=== PATIENT | female | born 2005 | race Caucasian/White ===

== ENCOUNTER 2024-04-14 10:09 | Outpatient (AMB) | payer BC, SELFPAY ==
--- NOTE | 2024-04-14 10:27 | AMB.GYNCLNOT ---
Vital Signs 04/14/24 10:28 Height 1.6 m Height Method Stated Weight 77.111 kg Weight Measurement Method Standing Scale BMI 30.1 BP 144/86 H Blood Pressure Source Automatic Cuff Blood Pressure Location Left Upper Arm Position Sitting Respiration 16 Pulse 95 Pulse Source Monitor Temp 97.6 F Temp Source Oral Pulse Oximetry (%) 98 Oxygen Delivery Method Room Air Allergies/Home Meds Allergies & Medications Allergies No Known Allergies Allergy (Verified 04/14/24 10:30) Medication Reconciliation escitalopram oxalate 5 mg tablet (Lexapro) 5 mg PO QDAY 04/14/24 [History Confirmed 04/14/24] Intake Visit Data Collection New Patient or Established: New Patient not seen in past 3 years at [facility] (considered New) Reason for Visit:: Contraception counseling Seen by Clinical Staff ONLY (RN/MA): No Integration Architect Required: No Do You Feel Safe at Home: Yes Authorities Contacted: N/A PCP or OBGYN visit in last 3 months: No Hx Now: No Are you currently on any form of Control: Yes Last menstrual period: 03/11/24 Pain Present Currently: No Pain Scale Used: Barth-Hendricks/Numerical Pain scale:: 0 Smoking Status Smoking Status: Never smoker Obstetrics/Gynecology Nurse 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 1. Little interest or pleasure in doing things: not at all 2. Feeling down, depressed, or hopeless: not at all Total score: 0 PHQ-9 3. Trouble falling or staying asleep, or sleeping too much: Not at all 4. Feeling tired or having little energy: Not at all 5. Poor appetite or overeating: Not at all 6. Feeling bad about yourself - or that you are a failure or have let yourself or your family down: Not at all 7. Trouble concentrating on things, such as reading the newspaper or watching television: Not at all 8. Moving or speaking so slowly that other people could have noticed? - Or the opposite - being so fidgety or restless that you have been moving around a lot more than usual: not at all 9. Thoughts that you would be better off or of hurting yourself in some way: Not at all Total score: 0 Source: Developed by Drs. Randy Browning, Maritza Can, Td Rivers and colleagues, with an educational ernie from [employer]. Depression screen completed yes Social History Living Situation History Marital Status: Single Lives With: Family Housing: House Housing Other:: The patient is in college. 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 Tobacco History Smoking Status: Never smoker Alcohol History Alcohol Intake: Current Alcohol Intake Frequency: holidays/special occasions only Substance Use History Substance Use: no Domestic Abuse History Do You Feel Safe at Home: Yes Past Medical History Past Medical History Have you ever been diagnosed with any of the following: Neurological Problems Cerebrovascular Accident (CVA): No Transient Ischemic Attacks (TIA): No Meningitis: No Seizures: No Guillain-[place] Syndrome: No Cardiology Problems Heart Murmur: No Congestive Heart Failure: No Hypertension: No Hypotension: No Respiratory Problems Chronic Obstructive Pulmonary Disease (COPD): No Asthma: No Bronchitis: No Pneumonia: No Tuberculosis: No Stomache/Intestinal Problems Hepatitis: No Gall Bladder Disease: No Reproductive Problems Breast Cancer: No Endometriosis: No Fibroids: No Genital Herpes: No Gonorrhea: No Pelvic Inflammatory Disease: No Polycystic Ovarian Syndrome: No Previous Pregnancies: No Syphilis: No Testicular Cancer: No Uterine Prolapse: No Musculoskeletal Problems Muscular Dystrophy: No Myasthenia Gravis: No Marfan's Syndrome: No Bone Cancer: No Arthritis: No Rheumatoid Arthritis: No Osteoporosis: No Endocrine Problems Diabetes Mellitus Type 1: No Diabetes Mellitus Type 2: No Hypoglycemia: No Aimee's Syndrome: No [place]'s Disease: No Hyperthyroidism: No Hypothyroidism: No Thyroid Cancer: No Parathyroid Disease: No Pituitary Disease: No Systemic Lupus Erythematosus: No Syndrome of Inappropriate Antidiuretic Hormone: No Adrenal Disease: No Graves' Disease: No Blood Problems Anemia: No Leukemia: No Hemophilia: No Psychologic Problems Depression: Yes Anxiety: Yes Attention Deficit Hyperactivity Disorder: Yes Other Problems Hospitalization: No Autoimmune Disease: No Down Syndrome: No Autism: No Developmental Delay: No Cosmetic Surgery: No Blood Transfusions: No History of Present Illness HPI Narrative The patient is a very pleasant 19-year-old G0 who presents to discuss control. She is currently on a low-dose control pill and is interested in the Mirena IUD. Patient states she is sexually active with 1 total lifetime partner. She is in a committed relationship and actually has a promise ring. Patient is pretty sure she had a Gardasil vaccine earlier she is going to check with her mother. Patient has not been tested for GC chlamydia in the urine and is willing to get tested today. She would like a Mirena IUD. She is tired of taking a control pill every day. Patient is on Lexapro 5 mg a day and Vyvanse for ADHD. She is on no other medications. Review of Systems Review of Systems Systems Reviewed: All systems reviewed, normal except as documented Constitutional Constitutional: Reports system reviewed and no additional complaints, except as documented Comments: Patient has regular withdrawal bleeding on her control pills she has no pelvic pain she has no pain with intercourse she has no abnormal bleeding between her withdraw pills. She has had no abnormal discharge or vaginal odor. She has about 3 to 4-day cycles on her control pill. She needs a refill today on control while we authorize for an IUD. Exam General Limitations: no limitations General Appearance: alert, in no apparent distress, comfortable, cooperative, healthy appearing, well developed and well groomed Neck Neck exam: Present normal inspection, full ROM and trachea midline Resp Respiratory exam: Present normal lung sounds bilaterally Card Cardiovascular exam: Present regular rate, normal rhythm and normal heart sounds Extremities Extremities exam: Present normal inspection and full ROM Psych Psychiatric exam: Present normal affect and normal mood Skin Skin exam: Present warm, dry, intact and normal color Assessment & Plan Diagnosis / Problem List (1) Contraceptive education: Status: Acute Plan: Plan to refill control pills at this time. We will authorize for Mirena IUD. We will call the patient once her IUD is authorized for insertion. Patient was told after we insert the IUD she needs to return refrain from intercourse for 2 weeks. We will bring her back at that point for string check. Patient does live in [place] so we will at this point check a GC chlamydia authorized for Mirena IUD and call her once it is authorized for placement. Additional Plan Follow Up: 3 Days Office Procedures OB Clinic LOC & Office Proc's Nursing/Assessment Patient Status: Initial/New Patient OB Clinic Nursing Assessment: Medication Reconciliation, Update PMH in EMR and Vital Signs OB Clinic Coordination of Care: Complex Care and Chronic Disease 1-5, Consent,records obtained, informed consent, Education Simp Pt/Fam, Lab and Imaging orders and Staff clarify orders New Patient Charge New Patient Point Assignment: 1099 New Patient Point Charge: HASHER OPERATOR Level 3 ([id number])
[2024-04-14 10:28] VITALS: BP 144/86; PULSE 95; RESP 16; TEMP 36.4; O2SAT 98; BMI 30.1
== END 2024-04-14 11:02 | disposition home or self-care (01) ==
PROVIDERS: Supervising Provider Obstetrics & Gynecology; Visit Provider Obstetrics & Gynecology
DX: Z30.09 Encounter for other general counseling and advice on contraception (principal)
CPT/HCPCS: 99203; G0463

== ENCOUNTER → 2024-04-14 | Outpatient (CLI) | payer BC, SELFPAY ==
[2024-04-14 17:36] LABS: Chlamydia trachomatis PCR Negative (Not Detect); Neisseria Gonorrhoeae DNA PCR Negative (Not Detect); Trichomonas Negative (Negative)
== END | disposition home or self-care (01) ==
PROVIDERS: Referring Provider Obstetrics & Gynecology; Visit Provider Obstetrics & Gynecology
DX: Z11.3 Encounter for screening for infections with a predominantly sexual mode of transmission (principal)
CPT/HCPCS: 87086; 87491; 87591; 87661

== ENCOUNTER 2024-06-23 11:01 | Outpatient (AMB) | payer BC, SELFPAY ==
[2024-06-23 11:21] VITALS: BP 161/80; PULSE 106; RESP 18; TEMP 36.2; O2SAT 99; BMI 32.6
--- NOTE | 2024-06-23 11:21 | GYNCLNT_ITS ---
Vital Signs 06/23/24 11:21 Height 1.6 m Height Method Stated Weight 83.574 kg Weight Measurement Method Standing Scale BMI 32.6 BP 161/80 H Blood Pressure Source Automatic Cuff Blood Pressure Location Left Upper Arm Position Sitting Respiration 18 Pulse 106 H Pulse Source Monitor Temp 97.2 F Temp Source Oral Pulse Oximetry (%) 99 Oxygen Delivery Method Room Air Allergies/Home Meds Allergies & Medications Allergies No Known Allergies Allergy (Verified 06/23/24 11:22) Medication Reconciliation escitalopram oxalate 5 mg tablet (Lexapro) 5 mg PO QDAY 04/14/24 [History Confirmed 06/23/24] norethindrone 1.5 mg-ethinyl estradiol 30 mcg(21)/iron 75 mg(7) tablet (Blisovi Fe 1.5/30 (28)) 1 tab PO QDAY #84 tabs 04/14/24 [Rx Confirmed 06/23/24] Intake Visit Data Collection New Patient or Established: Established Patient (seen at [facility] within 3 years) Reason for Visit:: Patient presents for Mirena IUD insertion Seen by Clinical Staff ONLY (RN/MA): No Grounds Person Required: No Do You Feel Safe at Home: Yes Authorities Contacted: N/A PCP or OBGYN visit in last 3 months: Yes Date of Last PCP or OBGYN visit: 04/14/24 Hx Now: No Are you currently on any form of Control: Yes (Patient is on control pills) Last menstrual period: 05/22/24 Pain Present Currently: No Pain Scale Used: Barth-Hendricks/Numerical Pain scale:: 0 Smoking Status Smoking Status: Never smoker 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 1. Little interest or pleasure in doing things: not at all 2. Feeling down, depressed, or hopeless: not at all Total score: 0 PHQ-9 3. Trouble falling or staying asleep, or sleeping too much: Not at all 4. Feeling tired or having little energy: Not at all 5. Poor appetite or overeating: Not at all 6. Feeling bad about yourself - or that you are a failure or have let yourself or your family down: Not at all 7. Trouble concentrating on things, such as reading the newspaper or watching television: Not at all 8. Moving or speaking so slowly that other people could have noticed? - Or the opposite - being so fidgety or restless that you have been moving around a lot more than usual: not at all 9. Thoughts that you would be better off or of hurting yourself in some way: Not at all Total score: 0 If you checked off any problems, how difficult have these problems made it for you to do your work, take care of things at home, or get along with other people?: not difficult at all Source: Developed by Drs. Randy Browning, Maritza Can, Td Rivers and colleagues, with an educational ernie from [employer]. 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 Tobacco History Smoking Status: Never smoker Second Hand Smoke Exposure: No Alcohol History Alcohol Intake: Current Alcohol Intake Frequency: holidays/special occasions only Substance Use History Substance Use: no Domestic Abuse History Do You Feel Safe at Home: Yes Past Medical History Past Medical History Have you ever been diagnosed with any of the following: Neurological Problems Cerebrovascular Accident (CVA): No Transient Ischemic Attacks (TIA): No Meningitis: No Seizures: No Guillain-[place] Syndrome: No Cardiology Problems Heart Murmur: No Congestive Heart Failure: No Hypertension: No Hypotension: No Respiratory Problems Chronic Obstructive Pulmonary Disease (COPD): No Asthma: No Bronchitis: No Pneumonia: No Tuberculosis: No Stomache/Intestinal Problems Hepatitis: No Gall Bladder Disease: No Reproductive Problems Breast Cancer: No Endometriosis: No Fibroids: No Genital Herpes: No Gonorrhea: No Pelvic Inflammatory Disease: No Polycystic Ovarian Syndrome: No Previous Pregnancies: No Syphilis: No Uterine Prolapse: No Musculoskeletal Problems Muscular Dystrophy: No Myasthenia Gravis: No Marfan's Syndrome: No Bone Cancer: No Arthritis: No Rheumatoid Arthritis: No Osteoporosis: No Endocrine Problems Diabetes Mellitus Type 1: No Diabetes Mellitus Type 2: No Hypoglycemia: No Aimee's Syndrome: No [place]'s Disease: No Hyperthyroidism: No Hypothyroidism: No Thyroid Cancer: No Parathyroid Disease: No Pituitary Disease: No Systemic Lupus Erythematosus: No Syndrome of Inappropriate Antidiuretic Hormone: No Adrenal Disease: No Graves' Disease: No Blood Problems Anemia: No Leukemia: No Hemophilia: No Psychologic Problems Depression: Yes Anxiety: Yes Attention Deficit Hyperactivity Disorder: Yes Other Problems Hospitalization: No Down Syndrome: No Autism: No Developmental Delay: No Cosmetic Surgery: No Blood Transfusions: No History of Present Illness HPI Narrative The patient is a very mature 19-year-old G0 who presents for Mirena IUD insertion. She is on control pills but states she does not want to continue to take these. She read all her information and has no questions. She is consented for the risk of her Mirena IUD insertion including the risk of infection, bleeding, uterine perforation and possible laparoscopy should uterine perforation occur. She is also aware of the risk of expulsion. She is aware of the risk of of approximately 1% and the increased risk of ectopic should she get with the Mirena IUD in place. She is aware that the IUD can stay in place up to 8 years. She is aware that she has increa sed risk of sexually transmitted diseases spreading throughout the pelvis if she gets gonorrhea, chlamydia or other STDs with an IUD in place. All questions were answered and consents were signed prior to placing the IUD. Of note the patient is taking control pills and has not missed any. No test was done today as she is on control pills. Exam External exam: Present normal external exam Speculum exam: Present normal speculum exam Bimanual exam: Present normal bimanual exam (Retroverted uterus) Assessment & Plan Diagnosis / Problem List (1) Contraceptive education: Status: Acute (2) Encounter for insertion of Mirena IUD: Status: Acute Assessment and Plan: IUD was inserted without difficulty. Frain from intercourse for 2 weeks. Follow-up for string check in 2 weeks. Office Procedures OB Clinic LOC & Office Proc's Nursing/Assessment Patient Status: Established Patient OB Clinic Nursing Assessment: BP Monitoring, Medication Reconciliation, Update PMH in EMR and Vital Signs OB Clinic Coordination of Care: Consent,records obtained, informed consent, Education Simp Pt/Fam and Staff clarify orders Miscellaneous Interventions: Pelvic/Pap Smear Set up Established Patient Charge Established Patient Point Assignment: 95 Established Patient Point Charge: EP Level 3 (80-115) In Clinic Bedside tests Bedside HCG: Yes In Clinic Procedures Insertion of Control other NOT IUD's: Yes INSERTION OF ANY IUD DEVICE: Yes Urine HCG Ambulatory Location Ambulatory Dept Location: [facility] Urine HCG HCG: Yes Results Urine HCG Urine HCG Negative Last Edit by Renu Duncan MA on 06/23/24 11:26 LUMBER PILER OPERATOR: BC insert/removal Procedure Notes Consent obtained: yes-verbal, yes-written and risks discussed Pre-op diagnosis general: Desires long-acting reversible contraception in the form of a Mirena IUD Post-op diagnosis procedure note: Same IUD type inserted: Mirena IUD Lot and Exp: Lot#: [id number] Expiration date: 06/2026 Procedure Notes:: After obtaining a informed consent the patient was placed in the dorsal lithotomy position and a pelvic exam was performed. Uterus was normal size and retroverted. A speculum exam was then performed and the cervix was prepped with Betadine. A single-tooth tenaculum was placed at the 12 o'clock position. The uterine sound was then inserted and the uterus found to be retroverted measuring 7 cm. A Mirena IUD was inserted to the fundus of the uterus without difficulty the strings were cut and left Long. The tenaculum was then removed and the tenaculum site noted to be hemostatic after placement of silver nitrate sticks on the cervix. The patient tolerated the procedure well,she did not get dizzy or lightheaded. She felt some mild cramping at insertion. Patient was told to refrain from intercourse for 2 weeks and to follow-up for string check then. Urine HCG Ambulatory Location Ambulatory Dept Location: Clinic Urine HCG HCG: No
== END 2024-06-23 11:38 | disposition home or self-care (01) ==
LOC: HODSOBC 11:01
PROVIDERS: Supervising Provider Obstetrics & Gynecology; Visit Provider Obstetrics & Gynecology
DX: Z30.014 Encounter for initial prescription of intrauterine contraceptive device (principal); N85.4 Malposition of uterus; Z79.3 Long term (current) use of hormonal contraceptives
CPT/HCPCS: 58300; 81025; 99213; J7298; G0463

== ENCOUNTER 2024-07-07 11:22 | Outpatient (AMB) | payer BC, SELFPAY ==
[2024-07-07 11:35] VITALS: BP 167/74; PULSE 125; RESP 18; TEMP 36.2; O2SAT 97; BMI 32.1
--- NOTE | 2024-07-07 11:35 | GYNCLNT_ITS ---
Vital Signs 07/07/24 11:35 Height 1.6 m Height Method Stated Weight 82.1 kg Weight Measurement Method Standing Scale BMI 32.1 BP 167/74 H Blood Pressure Source Automatic Cuff Blood Pressure Location Left Upper Arm Position Sitting Respiration 18 Pulse 125 H Pulse Source Monitor Temp 97.2 F Temp Source Oral Pulse Oximetry (%) 97 Oxygen Delivery Method Room Air Allergies/Home Meds Allergies & Medications Allergies No Known Allergies Allergy (Verified 07/07/24 11:37) Medication Reconciliation escitalopram oxalate 5 mg tablet (Lexapro) 5 mg PO QDAY 04/14/24 [History Confirmed 07/07/24] norethindrone 1.5 mg-ethinyl estradiol 30 mcg(21)/iron 75 mg(7) tablet (Blisovi Fe 1.5/30 (28)) 1 tab PO QDAY #84 tabs 04/14/24 [Rx Confirmed 07/07/24] Intake Visit Data Collection New Patient or Established: Established Patient (seen at [facility] within 3 years) Reason for Visit:: IUD CHECK Seen by Clinical Staff ONLY (RN/MA): No Do You Feel Safe at Home: Yes Authorities Contacted: N/A PCP or OBGYN visit in last 3 months: Yes Date of Last PCP or OBGYN visit: 06/23/24 Hx Now: No Are you currently on any form of Control: Yes Pain Present Currently: No Pain Scale Used: Barth-Hendricks/Numerical Pain scale:: 0 Smoking Status Smoking Status: Never smoker 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 1. Little interest or pleasure in doing things: not at all 2. Feeling down, depressed, or hopeless: not at all Total score: 0 PHQ-9 3. Trouble falling or staying asleep, or sleeping too much: Not at all 4. Feeling tired or having little energy: Not at all 5. Poor appetite or overeating: Not at all 6. Feeling bad about yourself - or that you are a failure or have let yourself or your family down: Not at all 7. Trouble concentrating on things, such as reading the newspaper or watching television: Not at all 8. Moving or speaking so slowly that other people could have noticed? - Or the opposite - being so fidgety or restless that you have been moving around a lot more than usual: not at all 9. Thoughts that you would be better off or of hurting yourself in some way: Not at all Total score: 0 If you checked off any problems, how difficult have these problems made it for you to do your work, take care of things at home, or get along with other people?: not difficult at all Source: Developed by Drs. Randy Browning, Maritza Can, Td Rivers and colleagues, with an educational ernie from [employer]. 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 Tobacco History Smoking Status: Never smoker Second Hand Smoke Exposure: No Alcohol History Alcohol Intake: Current Alcohol Intake Frequency: holidays/special occasions only Substance Use History Substance Use: no Domestic Abuse History Do You Feel Safe at Home: Yes Past Medical History Past Medical History Have you ever been diagnosed with any of the following: Neurological Problems Cerebrovascular Accident (CVA): No Transient Ischemic Attacks (TIA): No Meningitis: No Seizures: No Guillain-[place] Syndrome: No Cardiology Problems Heart Murmur: No Congestive Heart Failure: No Hypertension: No Hypotension: No Respiratory Problems Chronic Obstructive Pulmonary Disease (COPD): No Asthma: No Bronchitis: No Pneumonia: No Tuberculosis: No Stomache/Intestinal Problems Hepatitis: No Gall Bladder Disease: No Reproductive Problems Breast Cancer: No Endometriosis: No Fibroids: No Genital Herpes: No Gonorrhea: No Pelvic Inflammatory Disease: No Polycystic Ovarian Syndrome: No Previous Pregnancies: No Syphilis: No Uterine Prolapse: No Musculoskeletal Problems Muscular Dystrophy: No Myasthenia Gravis: No Marfan's Syndrome: No Bone Cancer: No Arthritis: No Rheumatoid Arthritis: No Osteoporosis: No Endocrine Problems Diabetes Mellitus Type 1: No Diabetes Mellitus Type 2: No Hypoglycemia: No [place]'s Syndrome: No [place]'s Disease: No Hyperthyroidism: No Hypothyroidism: No Thyroid Cancer: No Parathyroid Disease: No Pituitary Disease: No Systemic Lupus Erythematosus: No Syndrome of Inappropriate Antidiuretic Hormone: No Adrenal Disease: No Graves' Disease: No Blood Problems Anemia: No Leukemia: No Hemophilia: No Psychologic Problems Depression: Yes Anxiety: Yes Attention Deficit Hyperactivity Disorder: Yes Other Problems Hospitalization: No Down Syndrome: No Autism: No Developmental Delay: No Cosmetic Surgery: No Blood Transfusions: No History of Present Illness HPI Narrative The patient is a 19-year-old G0 presents for an IUD follow-up. She underwent an uncomplicated insertion of a Mirena IUD 06/23/24. It is in the correct place. Patient was told she can go back to normal activities including intercourse and tampon use. She can call with any problems. She can follow-up yearly for annual exams. She was told her blood pressure was high today and she should follow-up with her primary care. Exam General General Appearance: alert, in no apparent distress, comfortable, cooperative, healthy appearing, well groomed and anxious External exam: Present normal external exam Speculum exam: Present normal speculum exam and other (IUD strings visible, trimmed to 1 inch outside her ectocervical os) Bimanual exam: Present normal bimanual exam Assessment & Plan Diagnosis / Problem List (1) IUD check up: Status: Acute Assessment and Plan: IUD in place. Okay for patient to have intercourse. Blood pressure is high but patient states she is anxious. She will follow-up with her primary care for a blood pressure check. Office Procedures OB Clinic LOC & Office Proc's Nursing/Assessment Patient Status: Established Patient OB Clinic Nursing Assessment: BP Monitoring, Medication Reconciliation, Update PMH in EMR and Vital Signs OB Clinic Coordination of Care: Consent,records obtained, informed consent, Education Simp Pt/Fam and Staff clarify orders Miscellaneous Interventions: Pelvic no cultures Established Patient Charge Established Patient Point Assignment: 85 Established Patient Point Charge: EP Level 3 (80-115) MANDREL PULLER: Past Medical History Past Medical History: No Hx Hypothyroidism, No Hx Hyperthyroidism, No Hx Breast Cancer, No Hx Hypertension, No Hx Anemia, No Hx Diabetes Mellitus Type 1, No Hx Diabetes Mellitus Type 2 and No Hx Polycystic Ovarian Syndrome
== END 2024-07-07 11:50 | disposition home or self-care (01) ==
LOC: HODSOBC 11:22
PROVIDERS: Supervising Provider Obstetrics & Gynecology; Visit Provider Obstetrics & Gynecology
DX: Z30.431 Encounter for routine checking of intrauterine contraceptive device (principal); R03.0 Elevated blood-pressure reading, without diagnosis of hypertension
CPT/HCPCS: 99213; G0463